=== PATIENT | female | born 1990 | race Two or more races ===

== ENCOUNTER 2018-02-27 16:02 | Emergency (ER) | payer OTHER ==
[~2018-02-27] VITALS: Ht 162.6 cm; Wt 49.9 kg
[2018-02-27 16:12] VITALS: BP 105/70
--- NOTE | 2018-02-27 17:36 | Emergency Room Report ---
History of Present Illness General Chief Complaint: Wound Recheck/Suture Removal Source: EMS Present Illness Allergies: Coded Allergies: No Known Allergies (Unverified , 02/27/18) Nursing Documentation-[facility] Past Medical History: No History, Except For Physical Exam Vital Signs Date Time Temp Pulse Resp B/P (MAP) Pulse Ox O2 Delivery O2 Flow Rate FiO2 02/27/18 16:12 97.9 98 17 105/70 98 Room Air Medical Decision Making ER Course procedure note CVL removal CVL removal, left IJ CVA I obtained verbal consent explaining the risks alternatives benefits of procedure. Place patient in Trendelenburg position. I used sterile technique to remove the suture. Used sterile suture tray. I cleaned the area with alcohol. I removed 2 sutures. I asked the patient to hold her breath during CVL removal. No complicatons. Sterile bandage was applied. Last Vital Signs Date Time Temp Pulse Resp B/P (MAP) Pulse Ox O2 Delivery O2 Flow Rate FiO2 02/27/18 16:12 97.9 98 17 105/70 98 Room Air Laura Silver MD Feb 27, 2018 17:36
[2018-02-27 19:06] VITALS: BP_SYST 112; BP_SYST 118; BP_DIAS 64; BP_DIAS 77
--- NOTE | 2018-02-27 22:18 | Emergency Room Report ---
History of Present Illness General Chief Complaint: Wound Recheck/Suture Removal Source: EMS Present Illness HPI 27 YO Female presents to the ED c/o having gangrene to bilateral feet. has completed 22days of IV abx . Sent to ED from [facility] for CVC removal. Denies fevers , chills, or worsening of her symptoms. Denies taking blood thinning medications. Pt. reports hx of PVD, Renal disease, and Bi-polar disorder. pt. reports pain is 5/10 in severity to bilateral feet and is relatively chronic, denies calf pain. Denies CP, Palpitations, LOC, AMS, dizziness, Changes in Vision, Sensation, paresthesias, or a sudden severe headache. Allergies: Coded Allergies: No Known Allergies (Unverified , 02/27/18) Patient History Past Medical History: see triage record, old chart reviewed - from [facility], psych hx - bi-polar, renal disease, other - PVD Past Surgical History: other Pertinent Family History: none Social History: Reports: drug use - - Drug use suspected by [facility] physician. Now: No Reviewed Nursing Documentation: PMH: Agreed; PSxH: Agreed Nursing Documentation-PMH Past Medical History: No History, Except For Review of Systems All Other Systems: limited - Pt. has poor cooperation, agitated and just wants to focus on removal of catheter only. Physical Exam Vital Signs Date Time Temp Pulse Resp B/P (MAP) Pulse Ox O2 Delivery O2 Flow Rate FiO2 02/27/18 16:12 97.9 98 17 105/70 98 Room Air Sp02 EP Interpretation: reviewed, normal General Appearance: no apparent distress, alert, GCS 15, non-toxic, thin, Chronically Ill Head: normocephalic, atraumatic Eyes: bilateral eye normal inspection, bilateral eye PERRL ENT: hearing grossly normal, normal voice Neck: full range of motion, other - CVC in Left side of neck, no erythema or evidence of infection. Respiratory: lungs clear, normal breath sounds, speaking full sentences Cardiovascular #1: regular rate, rhythm, no edema Musculoskeletal: back normal, gait/station normal, normal range of motion, non- tender Neurologic: alert, oriented x3, responsive, motor strength/tone normal, sensory intact, speech normal, grossly normal Psychiatric: judgement/insight normal Skin: normal color, warm/dry, well hydrated, other - CVC in Left side of neck, no erythema or evidence of infection. what appears as chronic ulcers to the bilateral feet, no evidence of current infection, poor wound healing. Lymphatic: no adenopathy Medical Decision Making PA Attestation Dr. Silver is my supervising Physician whom patient management has been discussed with. Diagnostic Impression: Primary Impression: Encounter for central line care ER Course 27 YO Female presents to the ED c/o having gangrene to bilateral feet. has completed 22days of IV abx . Sent to ED from SNF for CVC removal. Denies fevers , chills, or worsening of her symptoms. Denies taking blood thinning medications. Pt. reports hx of PVD, Renal disease, and Bi-polar disorder. pt. reports pain is 5/10 in severity to bilateral feet and is relatively chronic, denies calf pain. Denies CP, Palpitations, LOC, AMS, dizziness, Changes in Vision, Sensation, paresthesias, or a sudden severe headache. Ddx considered but are not limited to cellulitis, necrosis, gangrene, DVT, Sepsis, fracture, d/L, gout Vital signs: are WNL, pt. is afebrile H&PE are most consistent with person with chronic disease. Pt. has poor cooperation, agitated and just wants to focus on removal of catheter only. ORDERS: none required at this time, the diagnosis is clinical ED INTERVENTIONS: -CVC Removed by Dr. Silver. pt. tolerated well and there were no complications. DISCHARGE: At this time pt. is stable for d/c to home. Will provide printed patient care instructions, and any necessary prescriptions. Care plan and follow up instructions have been discussed with the patient prior to discharge. Last Vital Signs Date Time Temp Pulse Resp B/P (MAP) Pulse Ox O2 Delivery O2 Flow Rate FiO2 02/27/18 19:06 98.0 88 18 112/77 99 Room Air Disposition: SNF Condition: Stable Referrals: NON PHYSICIAN (PCP) Additional Instructions: Take any previously prescribed medications as directed. Stable for Transfer back to SNF Return sooner to ED if new symptoms occur, or current symptoms become worse. - Please note that this Emergency Department Report was dictated using [employer] practice director technology software, occasionally this can lead to erroneous entry secondary to interpretation by the dictation equipment. Yasmin Edwards Feb 27, 2018 22:18
== END 2018-02-27 18:45 ==
LOC: EDBD 16:02 → EMR 18:42
DX: Z48.00 Encounter for change or removal of nonsurgical wound dressing (principal)
CPT/HCPCS: 99283